=== PATIENT | male | born 1985 | race African-American/Black ===

== ENCOUNTER 2018-08-03 01:31 | Emergency (ER) | payer OTHER ==
[~2018-08-03] VITALS: Ht 182.9 cm; Wt 97.5 kg
[2018-08-03 02:21] LABS: BASOPHILS % (AUTO) 0.6 % (0.0-2.0); EOSINOPHILS % (AUTO) 3.5 % (0.0-6.0); HEMATOCRIT 39 % (39-51); HEMOGLOBIN 12.6 g/dL (13.5-17.5); LYMPHOCYTES # (AUTO) 2.5 /CMM (0.8-4.8); LYMPHOCYTES % (AUTO) 51.9 % (20.0-44.0); MEAN CORPUSCULAR HGB CONC 33 g/dl (31.0-36.0); MEAN CORPUSCULAR VOLUME 77 fL (80-96); MONOCYTES # (AUTO) 0.4 /CMM (0.1-1.30); MONOCYTES % (AUTO) 7.7 % (2.0-12.0); NEUTROPHILS # (AUTO) 1.8 /CMM (1.8-8.9); NEUTROPHILS % (AUTO) 36.3 % (43.0-81.0); PLATELET COUNT (AUTO) 283 /CMM (150-450); RED BLOOD CELL COUNT(AUTO) 5.06 MIL/uL (4.5-6.0); WHITE BLOOD COUNT (AUTO) 4.9 K/uL (4.3-11.0)
[2018-08-03 02:25] LABS: CALCIUM, SERUM 8.6 mg/dL (8.5-10.1); CREATININE 1.2 mg/dL (0.6-1.3); POTASSIUM 3.9 mmol/L (3.5-5.1)
--- NOTE | 2018-08-03 02:30 | NUR ---
PT BIB SELF FOR PSYCH EVAL, VS STABLE, SEEN AND EVAL DONE BY DR RAINES, PLACED ON ER BED 11, AWAITING FOR FUTHER EVAL.
[2018-08-03 02:31] LABS: ALBUMIN 3.3 g/dL (3.4-5.0); BILIRUBIN,TOTAL 0.1 mg/dL (0.2-1.0); TOTAL PROTEIN, SERUM 6.5 g/dL (6.4-8.2)
[2018-08-03 02:32] LABS: SALICYLATE 1.9 mg/dL (2.8-20.0)
[2018-08-03 03:13] LABS: APPEARANCE,URINE Clear (CLEAR); BILIRUBIN,URINE Negative (NEGATIVE); BLOOD, URINE Negative Ery/uL (NEGATIVE); COLOR,URINE Yellow (YELLOW); KETONES,URINE Negative (NEGATIVE); LEUKOCYTE ESTERASE ,URINE Negative (NEGATIVE); NITRITE, URINE Negative (NEGATIVE); PROTEIN,URINE Negative (NEGATIVE); UGLUCOSE Negative (NEGATIVE); UROBILINOGEN,URINE 0.2 EU/dL (0.2)
--- NOTE | 2018-08-03 04:29 | NUR ---
PT ACCEPTED TO [facility] BY DR QUEVEDO. # FOR REPORT [phone]
--- NOTE | 2018-08-03 05:27 | NUR ---
pt asleep, vs stable, awaiting eval, will cont' to monitor.
--- NOTE | 2018-08-03 07:06 | NUR ---
PT ASLEEP, VS STABLE, AWAITING FOR CRISIS TEAM FOR EVAL.
--- NOTE | 2018-08-03 07:30 | NUR ---
PT ASLEEP IN BED, VSS, KEPT SAFE, WARM AND COMFORTABLE.
--- NOTE | 2018-08-03 08:52 | NUR ---
PROVIDED W SANDWICH AND WATER. TOLERATING PO WELL
--- NOTE | 2018-08-03 09:10 | NUR ---
PROVIDED BREAKFAST TRAY. PT TOLERATING PO WELL
[2018-08-03 09:16] VITALS: BP 129/81
--- NOTE | 2018-08-03 09:25 | NUR ---
SPOKE TO CEMENT TESTER ASSISTANT HENRI WILL IN AN HOUR TO SEE THE PATIENT
--- NOTE | 2018-08-03 10:30 | NUR ---
CHEF CONCIERGE ART CAPILLA AT BEDSIDE
--- NOTE | 2018-08-03 11:37 | NUR ---
PER FLOWER STRIPPER YASSINE GRAY, PT HAS BEEN ACCEPTED IN [facility] ([id number], [facility] [id number])
--- NOTE | 2018-08-03 11:52 | NUR ---
PT REFUSED TO SIGN DC PAPERWORK, DID NOT RECEIVED DC INSTRUCTION WELL [facility] PLACEMENT INFORMATION. ART, SCIENTIFIC DATABASE CURATOR NOTIFIED, HE SPOKE WITH THE PATIENT BUT PATIENT WALKED OUT OF ED.
== END 2018-08-03 11:53 | disposition home or self-care (01) ==
LOC: ER 01:31
DX: R45.851 Suicidal ideations (principal); F41.9 Anxiety disorder, unspecified; F32.9 Major depressive disorder, single episode, unspecified; F20.9 Schizophrenia, unspecified; F17.200 Nicotine dependence, unspecified, uncomplicated; Z88.8 Allergy status to other drugs, medicaments and biological substances
CPT/HCPCS: 36415; 80048; 80076; 80305; 80307; 80329; 81001; 85025; 99284; G0480; 81000-TC

== ENCOUNTER 2018-10-17 19:12 | Emergency (ER) | payer OTHER ==
[~2018-10-17] VITALS: Ht 182.9 cm; Wt 90.7 kg
--- NOTE | 2018-10-17 19:23 | NUR ---
CALLED PT TO BE TRIAGED, NO ANSWER
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
--- NOTE | 2018-10-17 19:40 | NUR ---
URINE COLLECTED AND SENT TO LAB
--- NOTE | 2018-10-17 19:50 | NUR ---
MUSHROOM LABORER AT BEDSIDE FOR BLOOD DRAW
[2018-10-17 19:53] LABS: BASOPHILS % (AUTO) 0.8 % (0.0-2.0); EOSINOPHILS % (AUTO) 3.9 % (0.0-6.0); HEMATOCRIT 39 % (39-51); HEMOGLOBIN 12.9 g/dL (13.5-17.5); LYMPHOCYTES # (AUTO) 2.2 /CMM (0.8-4.8); LYMPHOCYTES % (AUTO) 49.4 % (20.0-44.0); MEAN CORPUSCULAR HGB CONC 33 g/dl (31.0-36.0); MEAN CORPUSCULAR VOLUME 77 fL (80-96); MONOCYTES # (AUTO) 0.3 /CMM (0.1-1.30); MONOCYTES % (AUTO) 6.5 % (2.0-12.0); NEUTROPHILS # (AUTO) 1.8 /CMM (1.8-8.9); NEUTROPHILS % (AUTO) 39.4 % (43.0-81.0); PLATELET COUNT (AUTO) 286 /CMM (150-450); RED BLOOD CELL COUNT(AUTO) 5.08 MIL/uL (4.5-6.0); WHITE BLOOD COUNT (AUTO) 4.4 K/uL (4.3-11.0)
[2018-10-17 20:01] LABS: APPEARANCE,URINE CLEAR (CLEAR); BILIRUBIN,URINE NEGATIVE (NEGATIVE); BLOOD, URINE NEGATIVE Ery/uL (NEGATIVE); COLOR,URINE YELLOW (YELLOW); KETONES,URINE NEGATIVE (NEGATIVE); LEUKOCYTE ESTERASE ,URINE NEGATIVE (NEGATIVE); NITRITE, URINE NEGATIVE (NEGATIVE); PROTEIN,URINE NEGATIVE (NEGATIVE); UGLUCOSE NEGATIVE (NEGATIVE)
[2018-10-17 20:20] LABS: CALCIUM, SERUM 8.7 mg/dL (8.5-10.1); CARBON DIOXIDE 27 mmol/L (21-32); CHLORIDE 105 mmol/L (98-107); CREATININE 1.2 mg/dL (0.6-1.3); GLUCOSE 135 mg/dL (74-106); POTASSIUM 3.4 mmol/L (3.5-5.1); SODIUM SERUM 142 mmol/L (136-145); UREA NITROGEN, BLOOD 15 mg/dL (7-18)
--- NOTE | 2018-10-17 20:28 | NUR ---
PT LYING IN BED W/ RESP EVEN & UNLABORED, CALM & COOPERATIVE W/ NAD NOTED.
[2018-10-17 20:34] LABS: ALANINE AMINOTRANSFERASE 30 U/L (12-78); ALBUMIN 3.5 g/dL (3.4-5.0); ALCOHOL, BLOOD < 3 mg/dL (0-0); ALKALINE PHOSPHATASE 62 U/L (46-116); ASPARTATE AMINOTRANSFERASE 26 U/L (15-37); BILIRUBIN,DIRECT 0.1 mg/dL (0.0-0.2); BILIRUBIN,TOTAL 0.5 mg/dL (0.2-1.0); TOTAL PROTEIN, SERUM 6.7 g/dL (6.4-8.2)
[2018-10-17 20:35] LABS: ACETAMINOPHEN < 5 ug/ml (10-30); SALICYLATE 1.7 mg/dL (2.8-20.0)
--- NOTE | 2018-10-17 22:45 | NUR ---
CALLED ART CRISIS LEGAL EXECUTIVE ASSISTANT FOR PSYCH EVAL. ONE HOUR ETA
--- NOTE | 2018-10-17 23:30 | NUR ---
YASSINE, ASSOCIATE RESEARCH SCIENTIST AT [facility].
--- NOTE | 2018-10-18 00:43 | NUR ---
PT RESTING COMFORTABLY IN BED W/ RESP EVEN & UNLABORED, NAD NOTED.
--- NOTE | 2018-10-18 01:48 | NUR ---
PT CONTINUES TO SLEEP IN BED W/ RESP EVEN & UNLABORED, BED LOW TO GROUND W/ SIDE RAILS UP FOR SAFETY, LIGHTS DIMMED FOR COMFORT.
--- NOTE | 2018-10-18 02:41 | NUR ---
PER PT REQUEST, PROVIDED PT WITH SANDWICH, CRACKERS, AND JUICE. PT RESTING COMFORTABLY IN BED. VITAL SIGNS STABLE. WILL CONTINUE TO MONITOR
--- NOTE | 2018-10-18 03:20 | NUR ---
PT CONTINUES TO SLEEP W/ NAD NOTED. WILL CONTINUE TO MONITOR. AWAITING SW IN AM.
--- NOTE | 2018-10-18 06:11 | NUR ---
PT AWAITING SW IN AM FOR SNF PLACEMENT, ASLEEP IN BED W/ RESP EVEN & UNLABORED, NAD NOTED.
--- NOTE | 2018-10-18 07:24 | NUR ---
CALLED FOR FOOD TRAY
--- NOTE | 2018-10-18 08:32 | NUR ---
PT IS AWAKE. VERBALLY RESPONSIVE. WAS PROVIDED W/ MEAL TRAY. VSS
--- NOTE | 2018-10-18 08:48 | NUR ---
ALEXANDRO GENAO AT BEDSIDE TALKING TO PT.
--- NOTE | 2018-10-18 08:50 | NUR ---
Social service consult requested by Dr. Stone for homelessness. Pt. is a 32 year old male who came to [facility] complaining of suicidal ideations with no plan. Pt. was seen and cleared by practice clinician last night. Pt. told emergency department clinician Neto that he was not suicidal but just needed a place to stay. BIRGIT met with pt. bedside alongside YADIRA Valentine. Pt. is alert and oriented x 4. Pt. appears disheveled and unkempt. Pt. was eating breakfast during the assessment. BIRGIT offered pt. [facility] placement but pt. declined stating he knows where to go. SW inquired with pt. where is it he is going to go. Pt. stated he is going to on [place], where he goes all the time. SW encouraged pt. to go to [facility] as well and link to their services. Pt. said he is familiar with them and will go there too. Pt. has had a history of psychiatric admissions. Per practice clinician Neto, YUDI stated he has been hospitalized over 60 times in their facilities. Patient tends to be noncompliant. BIRGIT offered pt. list of homeless resources, however pt. declined to accept them. Pt. did accept TAP card. Pt. denies suicidal and homicidal ideations and is medically and psychiatrically cleared for discharge. Homeless Patient Waiver Form was signed by the pt. and placed in pt's chart. No other social service needs are requested at this time.
--- NOTE | 2018-10-18 09:04 | NUR ---
PT MEDICALLY AND PSYCH CLEARED. AMBULATORY W/ STEADY GAIT. PROVIDED W/ TAPCARD FOR TRANSPORTATION AND STATES "I KNOW WHERE IM GOING. DISCHARGE HOME IN STABLE CONDITION.
[2018-10-18 09:10] VITALS: BP 132/84
== END 2018-10-18 09:11 | disposition home or self-care (01) ==
LOC: ER 19:18
DX: R45.851 Suicidal ideations (principal); F17.200 Nicotine dependence, unspecified, uncomplicated; Z59.0 Homelessness; Z88.8 Allergy status to other drugs, medicaments and biological substances
CPT/HCPCS: 36415; 80048; 80076; 80305; 80307; 80329; 81001; 85025; 99284; 99406; G0480; 81000-TC

== ENCOUNTER 2018-10-21 10:48 | Emergency (ER) | payer OTHER ==
[~2018-10-21] VITALS: Ht 172.7 cm; Wt 90.7 kg
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
--- NOTE | 2018-10-21 11:20 | NUR ---
PER . PT IS STATING HE IS HAVING SUICIDAL IDEATIONS
--- NOTE | 2018-10-21 11:34 | NUR ---
ALL BELONGINGS IN UTILITY ROOM FOR S/I PRECAUTION
[2018-10-21 11:51] LABS: BASOPHILS % (AUTO) 0.6 % (0.0-2.0); EOSINOPHILS % (AUTO) 1.1 % (0.0-6.0); HEMATOCRIT 37 % (39-51); HEMOGLOBIN 12.3 g/dL (13.5-17.5); LYMPHOCYTES % (AUTO) 15.4 % (20.0-44.0); MEAN CORPUSCULAR HGB CONC 34 g/dl (31.0-36.0); MEAN CORPUSCULAR VOLUME 77 fL (80-96); MONOCYTES # (AUTO) 0.7 /CMM (0.1-1.30); MONOCYTES % (AUTO) 11.3 % (2.0-12.0); NEUTROPHILS # (AUTO) 4.5 /CMM (1.8-8.9); NEUTROPHILS % (AUTO) 71.6 % (43.0-81.0); PLATELET COUNT (AUTO) 204 /CMM (150-450); RED BLOOD CELL COUNT(AUTO) 4.77 MIL/uL (4.5-6.0); WHITE BLOOD COUNT (AUTO) 6.2 K/uL (4.3-11.0)
[2018-10-21 11:55] LABS: APPEARANCE,URINE Clear (CLEAR); BILIRUBIN,URINE SMALL (NEGATIVE); BLOOD, URINE Negative Ery/uL (NEGATIVE); COLOR,URINE Dark (YELLOW); KETONES,URINE 15 (NEGATIVE); LEUKOCYTE ESTERASE ,URINE Negative (NEGATIVE); NITRITE, URINE Negative (NEGATIVE); PH,URINE 5.5 (5.0-8.0); PROTEIN,URINE 30 mg/dl (NEGATIVE); UGLUCOSE Negative (NEGATIVE); UROBILINOGEN,URINE 0.2 EU/dL (0.2)
[2018-10-21 11:59] LABS: CALCIUM, SERUM 8.5 mg/dL (8.5-10.1); CARBON DIOXIDE 25 mmol/L (21-32); CHLORIDE 99 mmol/L (98-107); CREATININE 1.2 mg/dL (0.6-1.3); GLUCOSE 76 mg/dL (74-106); POTASSIUM 3.7 mmol/L (3.5-5.1); SODIUM SERUM 134 mmol/L (136-145); UREA NITROGEN, BLOOD 17 mg/dL (7-18)
[2018-10-21 12:02] LABS: BACTERIA,URINE Rare /HPF (None Seen); RBC,URINE NONE SEEN /HPF (0-2); SQUAMOUS EPITHELIAL CELL,UR Rare /HPF (None Seen); WBC,URINE 0-2 /HPF (0-3)
[2018-10-21 12:12] LABS: ACETAMINOPHEN 0 ug/ml (10-30); ALANINE AMINOTRANSFERASE 25 U/L (12-78); ALBUMIN 3.6 g/dL (3.4-5.0); ALKALINE PHOSPHATASE 62 U/L (46-116); ASPARTATE AMINOTRANSFERASE 27 U/L (15-37); BILIRUBIN,DIRECT 0.2 mg/dL (0.0-0.2); BILIRUBIN,TOTAL 1.2 mg/dL (0.2-1.0); SALICYLATE 1.4 mg/dL (2.8-20.0); TOTAL PROTEIN, SERUM 6.9 g/dL (6.4-8.2)
[2018-10-21 12:13] LABS: ALCOHOL, BLOOD < 3 mg/dL (0-0)
--- NOTE | 2018-10-21 13:00 | NUR ---
PT PROVIDED WITH MEAL TRAY
--- NOTE | 2018-10-21 17:13 | NUR ---
RENEE ETA 1 HR
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
[2018-10-21 20:00] VITALS: BP 110/80
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
--- NOTE | 2018-10-21 20:45 | NUR ---
Patient given written and verbal discharge instructions. Patient verbalizes understanding of instructions. Patient is ambulatory with steady gait. Refuses offer of [facility] placement. Patient given list of available shelters in surrounding area.
== END 2018-10-21 20:48 | disposition home or self-care (01) ==
LOC: ER 10:50
DX: R45.851 Suicidal ideations (principal); F15.10 Other stimulant abuse, uncomplicated; F20.9 Schizophrenia, unspecified; F41.9 Anxiety disorder, unspecified; F32.9 Major depressive disorder, single episode, unspecified; F17.200 Nicotine dependence, unspecified, uncomplicated; F29 Unspecified psychosis not due to a substance or known physiological condition; F12.10 Cannabis abuse, uncomplicated; Z88.8 Allergy status to other drugs, medicaments and biological substances
CPT/HCPCS: 36415; 80048-TC; 80076-TC; 80305; 81000-TC; 85025-TC; G0480

== ENCOUNTER 2018-12-23 17:42 | Emergency (ER) | payer OTHER ==
--- NOTE | 2018-12-23 18:21 | NUR ---
called for triage not in the waiting room
--- NOTE | 2018-12-23 18:30 | NUR ---
called for triage not in the waiting room.
--- NOTE | 2018-12-23 18:40 | NUR ---
called for triage not in the waiting room.
== END 2018-12-23 18:41 | disposition left against medical advice (07) ==
LOC: ER 17:42
DX: Z53.21 Procedure and treatment not carried out due to patient leaving prior to being seen by health care provider (principal)

== ENCOUNTER 2019-02-08 02:52 | Emergency (ER) | payer OTHER ==
[~2019-02-08] VITALS: Ht 184.2 cm; Wt 100.2 kg
[2019-02-08 03:35] VITALS: BP 143/98
[2019-02-08] MEDS ORDERED: KETOROLAC TROMETHAMINE INJ 60 MG/2 ML VIAL IM ONE ×2 (03:50→04:00)
== END 2019-02-08 04:01 | disposition home or self-care (01) ==
LOC: ER 03:00
DX: M79.601 Pain in right arm (principal); F99 Mental disorder, not otherwise specified; F41.9 Anxiety disorder, unspecified; F32.9 Major depressive disorder, single episode, unspecified; F20.9 Schizophrenia, unspecified; F17.200 Nicotine dependence, unspecified, uncomplicated; Z88.8 Allergy status to other drugs, medicaments and biological substances
CPT/HCPCS: 96372; 99283; J1885

== ENCOUNTER 2019-05-26 02:42 | Emergency (ER) | payer OTHER ==
[~2019-05-26] VITALS: Ht 184.2 cm; Wt 100.2 kg
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
[2019-05-26] MEDS ORDERED: CYCLOBENZAPRINE 10 MG TABLET ONE (03:12)
[2019-05-26] MEDS ORDERED: KETOROLAC TROMETHAMINE INJ 30 MG/ML VIAL ONE (03:12)
--- NOTE | 2019-05-26 03:24 | NUR ---
Patient discharged to home in stable condition. Written and verbal after care instructions given. Patient verbalizes understanding of instruction.
[2019-05-26 03:25] VITALS: BP 134/76
[2019-05-26] MEDS ORDERED: CYCLOBENZAPRINE 10 MG TABLET PO ONE (03:30)
[2019-05-26] MEDS ORDERED: KETOROLAC TROMETHAMINE INJ 30 MG/ML VIAL IM ONE (03:30)
== END 2019-05-26 03:25 | disposition home or self-care (01) ==
LOC: ER 02:48
DX: G44.209 Tension-type headache, unspecified, not intractable (principal); F17.200 Nicotine dependence, unspecified, uncomplicated; Z88.8 Allergy status to other drugs, medicaments and biological substances
CPT/HCPCS: 96372; 99283; J1885